=== PATIENT | female | born 1990 | race African-American/Black ===

== ENCOUNTER 2018-01-28 10:56 | Outpatient (CLI) | payer OTHER ==
[2018-01-28 11:25] VITALS: BP 113/62
== END 2018-01-28 13:14 | disposition home or self-care (01) ==
LOC: LDRP-OP 10:56 → 2WEST 10:57
DX: O36.8120 Decreased fetal movements, second trimester, not applicable or unspecified (principal); O26.892 Other specified pregnancy related conditions, second trimester; R10.9 Unspecified abdominal pain; O99.312 Alcohol use complicating pregnancy, second trimester; F10.11 Alcohol abuse, in remission; O99.212 Obesity complicating pregnancy, second trimester; O99.332 Smoking (tobacco) complicating pregnancy, second trimester; O99.342 Other mental disorders complicating pregnancy, second trimester; F41.9 Anxiety disorder, unspecified; F32.9 Major depressive disorder, single episode, unspecified; Z3A.26 26 weeks gestation of pregnancy
CPT/HCPCS: 59025; G0378